=== PATIENT | female | born 1940 | race Caucasian/White ===

== ENCOUNTER 2019-04-28 15:28 | Inpatient (IN) | payer OTHER ==
[~2019-04-28] VITALS: Ht 165.1 cm; Wt 89.8 kg
[2019-04-28 15:37] VITALS: BP 183/76
--- NOTE | 2019-04-28 15:59 | NUR ---
PT COMES WITH A MED LIST FROM [facility] BUT DAUGHTER BRINGS A BAG OF MULIPLE MEDICATIONS THAT PT HAS BEEN SELF DOSING WITH. THESE WILL BE LISTED IN ANOTHER NOTE
[2019-04-28] MEDS ORDERED: ARMOUR THYROID60 M1 PO (16:04)
[2019-04-28] MEDS ORDERED: ARICEPT10 M1 PO (16:05)
[2019-04-28] MEDS ORDERED: LISINOPRIL2.5 MG PO (16:05)
[2019-04-28] MEDS ORDERED: ZETIA10 MG PO (16:05)
[2019-04-28] MEDS ORDERED: MYRBETRIQ50 MG PO (16:06)
[2019-04-28] MEDS ORDERED: KLOR-CON M2020 MEQ PO (16:06)
[2019-04-28] MEDS ORDERED: NYSTATIN1 EA10 TOP (16:06)
[2019-04-28] MEDS ORDERED: TRIAMTERENE-HC1 EAC2 PO (16:07)
[2019-04-28] MEDS ORDERED: SPIRONOLACTONE25 MG PO (16:07)
[2019-04-28] MEDS ORDERED: VIIBRYD40 MG PO (16:08)
--- NOTE | 2019-04-28 16:29 | NUR ---
MULTIPLE MEDS FOUND IN THE BAG BROUGHT BY DAUGHTER INCLUDING: TYLENOL # 3 FILLED IN 2011 VICOPROFEN FILLED IN 2001 4 BOTTLES OF TRIAMTERENE-HCTZ FILLED IN 2016, 2018,2014,2014 IMMODIUM THAT EXP IN 2013 4 BOTTLES OF LISINPRIL FILLED IN 2017, 2016, 2015, 2017 4 BOTTLES OF K+ FILLED IN 2014, ,2017 CIPRO FILLED IN 2006 HOTEL CONCIERGE THYROID FILLED IN 2016 VIIBRYD FILED IN 2017 NORCO 7.5-325 FILLED IN 2015 EZETIMIBE-SIMVASTATIN FILLED IN 2016 MOTRIN THAT EXP IN 2001 SIMVASTATIN FILLED IN 2018 KEFLEX FILLED IN 2004, 2007, 2006 2015 LEVAQUIN FILLED IN 2007 DONEPIZIL FILLED IN 2017 BENZONATATE FILLED IN 2012 CHLORZOXAZONE FILLED IN 2015 EZETIMIBE FILLED IN 2018 SENNA THAT EXP IN 2008 FLAGYL FILLED IN 2016 MYRBETIRQ FILLED IN 2018 CLARITIN THAT EXP IN 2007 PROMETHAZINE FILLED IN 2007 MECLIZINE FILLED IN 2008 ASA THAT EXP IN 1998 ADVIL THAT EXP IN 2015 NEXIUM FILLED IN 2013 A BOTTLE WITH LISINOPRIL CROSSED OUT AND ACYCLOVIR HAND WRITTEN ON LABEL A PILL BOX WITH THE FOLLOWING LABELS: "MEMORY," ARMOUR THY, LISNOPRIL, TRIAMIERENE, VIIBD, "BLADDER" AND VYTORIN. THE SIGNIFIGANCE OF THIS IS THAT PT IS REPORTED TO HAVE THESE SROUNDING HER AND HAS INFORMED FAMILY AND STAFF THAT SHE TAKES ALL OF THESE MEDICATIONS. PT COULD HAVE POTENTIALLY TAKEN MANY OR NONE OF THE MEDICATIONS
[2019-04-28 16:32] LABS: ABSOLUTE NEUTROPHILS 9.4 thou/uL (1.4-8.2); BASOPHILS 0.4 % (0.0-2.0); EOSINOPHILS 0.8 % (0.0-3.0); HEMOGLOBIN 12.2 gm/dL (12.0-15.0); MCH 30.9 pg (26.0-34.0); MCHC 32.9 g/dL (28.0-37.0); MCV 93.9 fL (80.0-100.0); MONOCYTES 6.8 % (1.0-8.0); RBC 3.94 mil/uL (4.20-5.00); RDW 13.8 % (10.5-14.5); WBC 13.6 thou/uL (4.0-11.0)
[2019-04-28 16:50] LABS: ALBUMIN 3.5 g/dL (3.4-5.0); ANION GAP 7 mmol/L (7-16); BUN 21 mg/dL (7-18); CHLORIDE 108 mmol/L (98-107); CO2 26 mmol/L (21-32); CREATININE 1.3 mg/dL (0.6-1.0); GLUCOSE 124 mg/dL (74-106); POTASSIUM 4.4 mmol/L (3.5-5.1); SGOT 11 U/L (15-37); SGPT 19 U/L (30-65); SODIUM 141 mmol/L (136-145); TOTAL BILIRUBIN 0.6 mg/dL (<0.1-1.0); TOTAL PROTEIN 7.3 g/dL (6.4-8.2); TROPONIN-I <0.06 ng/mL (<0.06)
[2019-04-28 17:00] LABS: URINE BILIRUBIN NEGATIVE (Negative); URINE BLOOD NEGATIVE (Negative); URINE CLARITY CLEAR; URINE COLOR YELLOW; URINE GLUCOSE-RANDOM* NEGATIVE (Negative); URINE KETONES NEGATIVE (Negative); URINE NITRITE-REFLEX NEGATIVE (Negative); URINE PROTEIN (DIPSTICK) NEGATIVE (Negative); URINE SPECIFIC GRAVITY 1.025 (1.005-1.035); URINE UROBILINOGEN 0.2 E.U./dl (0.2-1.0)
[2019-04-28 17:04] LABS: CALCIUM 11.9 mg/dL (8.5-10.1)
[2019-04-28 17:07] LABS: AMP/METHAMP Negative (Negative); BARBITURATES Negative (Negative); BENZODIAZEPINES Negative (Negative); COCAINE Negative (Negative); METHADONE Negative (Negative); OPIATES Negative (Negative); PCP Negative (Negative); URINE LEUKOCYTES-REFLEX 1+ (Negative)
[2019-04-28 17:55] LABS: CASTS None Seen /LPF (None Seen); CRYSTALS None Seen /LPF (None Seen); SQUAMOUS >10 Many /LPF (0-3)
[2019-04-28 17:56] LABS: BACTERIA-REFLEX 1-9 Few /HPF (None Seen); URINE RBC None Seen /HPF (0-2); URINE WBC-REFLEX 6-15 Few /HPF (0-5)
[2019-04-28 18:11] LABS: PLATELET COUNT 178 thou/uL (150-400)
[2019-04-28 18:48] VITALS: BP 177/83
[2019-04-28 19:21] VITALS: BP 188/73
[2019-04-28 21:23] LABS: CALCIUM 10.5 mg/dL (8.5-10.1); CREATININE 1.1 mg/dL (0.6-1.0); PHOSPHORUS 2.8 mg/dL (2.5-4.9)
[2019-04-28 21:28] VITALS: BP 140/65
[2019-04-29 03:55] VITALS: BP 151/75
--- NOTE | 2019-04-29 04:33 | NUR ---
ADMISSION ASSESSMENT COMPLETED. PT IS ALERT AND ORIENTED. FLAT AFFECT. PT STATES " THEY SAY I WANTED TO KILL MYSELF BUT I DONT" PT DENIES ANY SUICIDAL IDEATION. SHE ANSWERED ADMISSION QUESTIONS. SHE IS FORGETFUL AT TIMES. SEEMS SLIGHTLY IRRITABLE. DENIES PAIN.WALKS WITH SBA TO THE BATHROOM.FALL PREC IN PLACE. CALL LIGHT WITHIN REACH.LOTS OF MEDICATIONS COLLECTED FROM PATIENT AND WILL BE SENT TO PHARMACY.
[2019-04-29 05:28] LABS: POTASSIUM 4.3 mmol/L (3.5-5.1)
[2019-04-29 06:18] LABS: CALCIUM 9.8 mg/dL (8.5-10.1)
[2019-04-29 07:39] VITALS: BP 148/62
[2019-04-29] MEDS ORDERED: LOPRESSOR50 PO (15:15)
--- NOTE | 2019-04-29 16:05 | NUR ---
INITIAL ASSESSMENT: Pt evaluated for d/c planning needs. Reviewed chart and spoke with nurse, pt and [facility] staff. Pt lives in assisted living at [facility]. Pt and spouse had moved into facility back in February 2019. According to staff at facility, pt has been bullying to other and normally stays to herself. Spouse had been living with pt in [place], but moved to another room because of behaviors. [facility] would like to do on-site evaluation of pt prior to return. They do have memory care unit at [place], but pt does not qualify at this time. Will remain available to assist as needed. [facility] [phone]
[2019-04-29 16:45] VITALS: BP 202/89
[2019-04-29 16:48] VITALS: BP 183/75; BP 183/76
[2019-04-29 17:00] VITALS: BP 185/86
[2019-04-29 17:24] LABS: TSH 2.938 uIU/mL (0.358-3.740)
[2019-04-29 19:10] VITALS: BP 151/66
--- NOTE | 2019-04-29 19:44 | NUR ---
Assumed care of pt at 0700. Pt pleasant but forgetful. Pharmacy states pt has low vitamin D. Provider aware. Fluids discontinued. Psych consulted. Pts daughter came to unit. Affidavid signed for pt to be transferred to . Provider aware. Call light within reach. Fall precautions in place. Report given to shirin TRACY.
--- NOTE | 2019-04-30 02:08 | NUR ---
ASSESSED AT START OF SHIFT. A&O3 FORGETFUL SLIGHTLY IRITABLE WHEN INFORMED ABOUT BED ALARM ON. PT GETS UP FROM BED WITH OUT CALLING EDUCATION PROVIDED. IV INTACT AND SALINE LOCK. PT STATED WILL LIKE TO GET A SHOWER OFFERED TONIGHT SHE STATED WILL LIKE TOMORROW @10AM. FALL PREC IN PLACE AND CALL LIGHT IN REACH WILL CONT WITH POC.
[2019-04-30 04:19] VITALS: BP 149/69
[2019-04-30 09:04] VITALS: BP 175/82
[2019-04-30] MEDS ORDERED: VITAMIN B-12500 MCG PO (10:43)
[2019-04-30] MEDS ORDERED: B12INJ IM (10:43)
--- NOTE | 2019-04-30 13:07 | NUR ---
Assumed care of pt at 0700. Pt pleasant this am and follows commands. Forgetful at times. Pt has been cleared to go to 5S. SBA to the toilet. Denies pain. Fall precautions in place. Report given to Estela TRACY.
[2019-04-30] MEDS ORDERED: VITAMIN D21250 MC1 PO (14:22)
[2019-04-30] MEDS ORDERED: SYNTHROID100 MC1 PO (14:22)
--- NOTE | 2019-05-01 11:53 | HC ---
[facility] [place] [address] CONSULTATION Name: BRITTANY WATTERS Room #: 443-P [facility] IN M.R.#: [id number] Admission: 04/28/19 Attend Phys: Amy Oro MD Discharge: 04/30/19 Date of : 38 Report #: [id number] THIS REPORT FOR: //name// CC: Peewee MARTINEZ Physician staff DATE OF SERVICE: 04/30/2019 ENDOCRINE CONSULTATION NOTE CONSULTING PHYSICIAN: Dr. Doyle. REASON FOR CONSULTATION: Hypercalcemia, hyperparathyroidism. HISTORY OF PRESENT ILLNESS: This is a 78-year-old female patient, who presented to the ER mainly from [facility] mainly with concerns over increased agitation and behavioral changes. It appears that the patient had gotten more aggressive both verbally and physically, especially with her where she had to be from him at their assisted living facility. Also, it seems that she was heard making suicidal threats. On arrival, the patient was found to be severely hypercalcemic and was admitted for further care and monitoring. On further questioning, the patient does not recall having had a prior history of hypercalcemia, hyperparathyroidism, kidney stones, pancreatitis, a diagnosis of osteoporosis, recent fractures, depression, decreased focus or forgetfulness, myalgias or body aches. The patient enjoys a good appetite and denies having had a significant weight loss over the past few years. Also, the patient has chronic hypothyroidism and is maintained on [place] Thyroid at a dose of 60 mg daily. REVIEW OF SYSTEMS: CONSTITUTIONAL: No major issues with fatigue, tiredness, fever, chills, or significant body weight changes. HEENT: Negative for sore throat, sinus pain, or ear congestion. PULMONARY: Negative for a shortness of breath, cough, or hemoptysis. CARDIAC: Negative for chest pain and palpitations, but noted for a lower extremity swelling. GASTROINTESTINAL: Noted for intermittent issues with the abdominal discomfort, but no nausea, vomiting, or major changes in bowel movement frequency. NEUROLOGY: Negative for a lightheadedness, dizziness, seizure activity, frequent severe headaches, or tremors. [facility] [address] [place] [address] CONSULTATION Name: ERWIN WATTERSANN Room #: 443-P [facility] IN M.R.#: [id number] Admission: 04/28/19 Attend Phys: Amy Oro MD Discharge: 04/30/19 Date of : 38 Report #: [id number] PSYCHIATRY: She denies having had mental status changes, mood alterations, delusions, or hallucinations. Otherwise, the review of systems is noncontributory other than those mentioned in the HPI. PAST MEDICAL HISTORY: Noted for: 1. Hypothyroidism. 2. Hypertension. 3. Dementia. 4. Rosacea. ACTIVE MEDICATIONS: Include: 1. [place] Thyroid 60 mg daily. 2. Aricept 5 mg daily. 3. Zetia 10 mg daily. 4. Lisinopril 2.5 mg daily. 5. Myrbetriq 50 mg daily. 6. Klor-Con 20 mEq daily. 7. Spironolactone 12.5 mg daily. 8. Triamterene/hydrochlorothiazide 37.5/25 mg daily. 9. Viibryd 40 mg daily. ALLERGIES: None noted in her chart. The patient does not recall any. FAMILY HISTORY: Noncontributory. SOCIAL HISTORY: The patient lives at an assisted living facility, [facility]. She has two children. Denies the use of tobacco, alcohol, or illicit drugs. PHYSICAL EXAMINATION: GENERAL: Pleasant female patient, who is not in apparent pain or distress. VITAL SIGNS: Blood pressure is 175/82 mmHg, heart rate is 72 beats per minute, respirations 17 per minute, and temperature is 36.5 degrees. CONSTITUTIONAL: The patient is sitting upright in bed, appears relatively comfortable, not in pain or distress. HEENT: Anicteric sclerae. Intact extraocular motions. NECK: Supple, without JVD, carotid bruits, or lymphadenopathy and no thyromegaly. CHEST: Noted for moderate air entry bilaterally with scattered rales. No wheezes or crackles. HEART: Regular rate and rhythm without murmurs or gallops. ABDOMEN: Soft and lax without tenderness or organomegaly. No guarding. Active bowel sounds. [facility] [address] [place] [address] CONSULTATION Name: BRITTANY WATTERS Room #: 443-P [facility] IN M.R.#: [id number] Admission: 04/28/19 Attend Phys: Amy Oro MD Discharge: 04/30/19 Date of : 38 Report #: [id number] EXTREMITIES: Lower extremity exam is noted for a trace ankle edema bilaterally with extensive stasis dermatitis changes. NEUROLOGIC: Awake, alert, and oriented to time, place, and person. The remainder of her examination is nonfocal. PSYCH: Appropriate. Normal mood and affect, interactive, normal thought process. LABORATORY RESULTS: Sodium 140, potassium 4.3, chloride 108, CO2 18, anion gap of 14, BUN 17, creatinine 1.0, glucose 103, AST 11, total bilirubin 0.6. Calcium on arrival was 11.9, later that day was 10.5, yesterday it was 9.8 mg/dL. Creatinine was 1.3 on arrival and now it is 1.0. Phosphorus 2.8. Alkaline phosphatase 90, ALT 19, total protein 7.3, albumin 3.5. Troponin negative. White blood count 13.6, hemoglobin 12.2, hematocrit 37, platelets 178. TSH 2.938. Vitamin B12 126, creatinine 1.1. PTH was 180, vitamin D 7.7. ASSESSMENT AND PLAN: 1. Hypercalcemia. The patient presented with near severe hypercalcemia at 11.9 mg/dL. This proved to be connected to hyperparathyroidism as will be discussed below. She responded very well to sufficient IV fluid resuscitation with her calcium converting to a very normal value of 9.8 mg/dL. Given this stability at the present time, I would advocate periodic calcium checks and maintaining hydration at least orally. Periodic followup in the outpatient setting is advised as well. 2. Hyperparathyroidism. Upon the patient's presentation with hypercalcemia, she was investigated for hyperparathyroidism and she proved to indeed have this issue with her PTH at 180. However, this appears to be a mixed hyperparathyroid outlook, especially in the presence of severe vitamin D deficiency. Moreover, the patient's hypercalcemic outlook responded significantly and readily to the short-term intravenous fluid resuscitation. Moreover, the patient does not feature any indication of a fpc end-organ damage caused by hypercalcemia or hyperparathyroidism including pancreatitis, chronic kidney disease, osteoporosis, fractures, or active symptoms. Given the stable outlook, I would certainly advocate for adequate vitamin D deficiency, adequate hydration, periodic serum calcium monitoring, and then an outpatient followup and evaluation in 3 months to assess her standing. I discussed these variables and the implications of this diagnosis with the patient at length and she agrees with the orientation to conservative monitoring. Since a surgical intervention is not being pursued at the present time, imaging studies have no immediate role. 3. Vitamin D deficiency, severe, at 7.7 and certainly contributing to the secondary element of hyperparathyroidism. I propose high dose vitamin D therapy at 50,000 international units, of ergocalciferol, weekly for 12 weeks, to be followed up in 3 months to ensure the adequate replacement. 4. Hypothyroidism. The patient has a longstanding hypothyroidism that has been treated with [place] Thyroid at a dose of 60 mg daily in the outpatient setting. I counseled the patient about the formulary limitations here at the [facility] [address] [place] [address] CONSULTATION Name: BRITTANY WATTERS Room #: 443-P [facility] IN .R.#: [id number] Admission: 04/28/19 Attend Phys: Amy Oro MD Discharge: 04/30/19 Date of : 38 Report #: [id number] in most hospitals and I propose converting to levothyroxine, which she had agreed to. An equivalent dosage of levothyroxine would be 100 mcg daily and I will start with that effective tomorrow. I have reviewed the clinical care notes, laboratory data, and other pertinent clinical information for over 35 minutes. I certainly appreciate this consultation by Dr. Doyle. <ELECTRONICALLY SIGNED> By: Lamar Casper MD 05/01/19 [id number] Lamar Casper MD /nt
== END 2019-04-30 16:17 | disposition home or self-care (01) | DRG 683 ==
LOC: ER 15:28 → 4S 18:00 → EROBS 18:00 → 4S 20:35
PROVIDERS: Nurse Practitioner Family; ADMIT Hospitalist
DX: N17.9 Acute kidney failure, unspecified (principal); N39.0 Urinary tract infection, site not specified; E87.2 Acidosis; R45.851 Suicidal ideations; E83.52 Hypercalcemia; I10 Essential (primary) hypertension; E03.9 Hypothyroidism, unspecified; F03.90 Unspecified dementia, unspecified severity, without behavioral disturbance, psychotic disturbance, mood disturbance, and anxiety; F32.9 Major depressive disorder, single episode, unspecified; G47.00 Insomnia, unspecified; E86.0 Dehydration; Z90.49 Acquired absence of other specified parts of digestive tract; Z79.899 Other long term (current) drug therapy
CPT/HCPCS: 10195

== ENCOUNTER 2019-04-30 17:19 | Inpatient (IN) | payer OTHER ==
[~2019-04-30] VITALS: Ht 165.1 cm; Wt 90.3 kg
--- NOTE | ~2019-04-30 | HC ---
[facility] [place] [address] CONSULTATION Name: BRITTANY WATTERS Room #: 521A-A [facility] IN M.R.#: [id number] Admission: 04/30/19 Attend Phys: Peewee Gregg DO Discharge: 05/06/19 Date of : 38 Report #: [id number] THIS REPORT FOR: //name// CC: Peewee MARTINEZ Physician staff DATE OF SERVICE: 05/03/2019 CHIEF COMPLAINT: History of skin cancer with open ulcer to the left wrist. HISTORY OF PRESENT ILLNESS: This is a 78-year-old female patient who was admitted to the Geriatric Psych Unit after a possible suicidal threat. The patient has been admitted and is receiving inpatient psychiatric care. She was noted to have some history of skin cancer. There is a report of possible melanoma, although that cannot be verified. I did not have anything to refer to. The patient states she has had 17 lesions removed and she has been seen by Dr. Mitchell Zamorano, supervisor lead burning in the past. PAST MEDICAL HISTORY: Positive for history of hypertension, elevated cholesterol, UTI, aggression, acute kidney injury, dementia, hypercalcemia and previous cholecystectomy. SOCIAL HISTORY: Negative for tobacco use. Positive for some alcohol use. FAMILY HISTORY: Unknown. MEDICATIONS: Include donepezil, Zetia, potassium, metoprolol, levothyroxine, ergocalciferol, vitamin B12, and cyanocobalamin. ALLERGIES: ADHESIVE TAPE. REVIEW OF SYSTEMS: CONSTITUTIONAL: The patient denies fever, chills, or weight loss. NEUROLOGICAL: The patient denies focal weakness, numbness or tingling. EYES: The patient denies any visual changes, redness or drainage. ENT: The patient denies earache, nasal drainage, sore throat. CARDIOVASCULAR: The patient denies chest pain, palpitations or diaphoresis. PULMONARY: The patient denies cough or shortness of breath. GASTROINTESTINAL: The patient denies nausea, vomiting, diarrhea or abdominal pain. ORTHOPEDIC: The patient denies pain or swelling in the extremities. She is aware of the ulceration on her left wrist that she thinks is a skin cancer. PSYCHIATRY: Please note findings in the history of present illness. ENDOCRINE: The patient denies heat or cold intolerance, polydipsia, polyphagia, polyuria. [address] [address] CONSULTATION Name: BRITTANY WATTERS Room #: 521A-A [facility] IN M.R.#: [id number] Admission: 04/30/19 Attend Phys: Peewee Gregg DO Discharge: 05/06/19 Date of : 38 Report #: [id number] DERMATOLOGIC: The patient denies rashes, itching, or lumps, but does have the ulceration on her left lateral wrist. Other systems in a 14-point review of systems are negative. PHYSICAL EXAMINATION: VITAL SIGNS: At this time include temperature 98.4, pulse 74, respiratory rate 18, and blood pressure 175/71. GENERAL: This is a chronically ill-appearing female patient who appears to be in distress. HEENT: Head normocephalic. Nose and throat clear. NECK: Supple. HEART: Regular rhythm without murmur. ABDOMEN: Soft and nontender. Bowel sounds present. EXTREMITIES: Demonstrate some occasional areas of scarring on the lower extremities, possibly from previous lesions that have been resected. She has an area of ulceration to her left lateral wrist with some hypertrophic granulation tissue and a little bit of fibrin, does not appear to be infected. It is nontender. It is unable to be determined by visual inspection whether this represents a cutaneous malignancy. NEUROLOGIC: The patient is alert. She appears to be moving all 4 extremities spontaneously. LABORATORY DATA: Includes sodium 140, potassium 4.3, CO2 18, BUN 17, creatinine 1.0, calcium is 9.8. White blood cell count 13.6, and hemoglobin 12.2. CLINICAL IMPRESSION: 1. 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 2. History of suicidal ideation and aggressive behavior. RECOMMENDATIONS: At this point in time, we will recommend a border foam or Band-Aid for simple protection right now. I think this would best be treated with excision with her supervisor lead burning when she as an outpatient. I do not see an urgent need to have it excised while here in the hospital as I am not certain whether she would be cooperative for doing such at the bedside or not, but needless to say it has been present for quite some time and I think she could have ongoing followup with the supervisor lead burning with whom she has had a relationship for cancer types and in order to get appropriate margins. I have discussed this with Dr. Gregg. I appreciate being asked to see her in consultation. By: [id number] Isaiah Rubio MD /nt
--- NOTE | ~2019-04-30 | D ---
[facility] [place] [address] DISCHARGE SUMMARY Name: BRITTANY WATTERS Room #: 521A-A [facility] IN M.R.#: [id number] Admission: 04/30/19 Attend Phys: Peewee Gregg DO Discharge: 05/06/19 Date of : 38 Report #: [id number] THIS REPORT FOR: //name// CC: Peewee MARTINEZ Physician staff DATE OF SERVICE: 05/06/2019 INPATIENT PSYCHIATRIC DISCHARGE SUMMARY ATTENDING PHYSICIAN: Peewee Gregg DO. DISTRICT FIRE CHIEF AT THE TIME OF DISCHARGE: Amy Oro MD DISCHARGE DIAGNOSES: Major neurocognitive disorder, mild degree, most likely due to Alzheimer's disease. Medical diagnoses include hypertension, negative culture for UTI, hypercalcemia improved, acute renal failure due to prerenal volume depletion, also mixed hyperparathyroidism diagnosed with ____. DISCHARGE PLAN: Discharging back to assisted living at [facility]. Psychiatric medical care to be provided by receiving facility. The patient will need both PCP and Psychiatry followup. MEDICATIONS: As follows: Lisinopril 20 mg p.o. daily, Depakote 750 mg p.o. at bedtime. I did not get a blood level on her prior to discharge. Metoprolol tartrate 50 mg p.o. b.i.d., this medication somehow with p.r.n. during her stay, but the hospitalist intended for it to be scheduled and she was quite hypertensive on the day of discharge due to this factor, Donepezil 5 mg p.o. daily for dementia, Zetia 10 mg p.o. daily for hypertriglyceridemia, potassium chloride 20 mEq p.o. daily for replacement, cyanocobalamin 1000 mcg p.o. daily for supplementation, levothyroxine 100 mcg p.o. daily for supplementation and Dr. Casper changed his mind, she does not want the patient continued on vitamin D 50,000 International Units p.o. weekly, although she was getting it during his stay. DISCHARGE DIET: Heart healthy diet. ACTIVITY LEVEL: As tolerated. The patient will require increased supervision including medication management, driving, managing appointments for doctors, also will need to be participating in social events more so ____. REASON FOR ADMISSION: Making suicidal statements, brought to the ER, found to be greatly hypercalcemic at 11.9 and was admitted medically for several days, [facility] [address] [place] [address] DISCHARGE SUMMARY Name: BRITTANY WATTERS Room #: 521A-A [facility] IN .R.#: [id number] Admission: 04/30/19 Attend Phys: Peewee Gregg, Discharge: 05/06/19 Date of : 38 Report #: [id number] Casper. HOSPITAL COURSE: Upon admission to Geriatric Psychiatry Unit, I elected to initially see how her behavior panned out on medication change and I elected to add Depakote at night. She was not particularly impulsive, hostile during this admission, but I had information from long-term and the daughter that stated otherwise, so I think the hardest part was her starting to gain some appreciation that she may need more day to day help ____. PHYSICAL EXAMINATION: VITAL SIGNS: Afebrile, pulse 77, BP 170/58. Since she was given her beta memo, I expect that to come down in next few days. The patient was advised to monitor blood pressure every other day for the next week. MUSCULOSKELETAL: Slow gait. Normal station. MENTAL STATUS EXAMINATION: This is a well-developed, mildly obese female, appearing at least stated age. Attention limited. Concentration fair. Speech is normal in rate, volume and tone. Thought process is linear and goal oriented. Thought content focused on discharge, seeing her dogs. No psychomotor agitation. No psychomotor retardation. Denied SI or HI. Denied hopelessness, helplessness. Denied auditory, visual or tactile hallucinations. Insight limited. Judgment limited. Fund of knowledge average range. ____ social insurance administrator. By: [id number] Peewee Gregg, DO /nt
--- NOTE | 2019-04-30 15:30 | NUR ---
PT ARRIVED FROM . PT UP AD JORDON. PT DENIES ANY SI AT THIS TIME. PT STATED SHE MADE VILLAVICENCIO CRACKS AND WAS TAKEN SERIOUSLY AND SHE WILL NOT DO THAT AGAIN. PT WALKS WITHOUT ASSISTANCE. PT STATED SHE HAS 7 HORSES AND USED TO RIDE, PT STATED SHE HAS A AMMONIUM NITRATE CRYSTALLIZER THAT WATCHES OVER THEM. PT STATED SHE HAS NICK DZ AND THERE IS A LEASION TO LEFT WRIST AND THREE SMALL SCABS TO RT FOOT/ANKLE. PT ORIENTED TO MONTH AND HOSPITAL. PT WANTING TO KNOW ABOUT HOW TO GET AHOLD OF HER CHILDREN STATED THAT HER PHONE IS AT HER APT.
[~2019-04-30 17:19] MED LIST: ARICEPT10 M1 PO; ARMOUR THYROID60 M1 PO; B12INJ IM; KLOR-CON M2020 MEQ PO; LISINOPRIL2.5 MG PO; LOPRESSOR50 PO; MYRBETRIQ50 MG PO; NYSTATIN1 EA10 TOP; SPIRONOLACTONE25 MG PO; SYNTHROID100 MC1 PO; TRIAMTERENE-HC1 EAC2 PO; VIIBRYD40 MG PO; VITAMIN B-12500 MCG PO; VITAMIN D21250 MC1 PO; ZETIA10 MG PO
[2019-04-30 18:30] VITALS: BP 158/82
[2019-04-30 19:36] VITALS: BP 149/66
--- NOTE | 2019-04-30 20:35 | NUR ---
ASSUMED CARE ON 04/30/19 @ 19:15, IN DAY ROOM WATCHING TV AND SOCIALIZING WITH PEERS. HRRR, LUNGS CTA, ABD N X 4 Q, REPORTS HAD BM TODAY, FURTHERMORE REPORTS THAT HAS NO GALL BLADDER AND TAKES IMMODIUM IN THE A.M. AND HAS A SOFT FORMED BM. WILL CONTINUE ROUNDING Q 12 MINUTES FOR PATIENT SAFETY.
--- NOTE | 2019-05-01 03:32 | NUR ---
AMBULATES INDEPENDENTLY, UP AD JORDON. A&OX3 ORIENTED TO PERSON, TIME, PLACE. DENIES SI AND HI. DENIES HALLUCINATIONS. NO INDICATIONS OF AH OR VH. DENIED PAIN ON ASSESSMENT, HOWEVER @ 22:30 REQUESTED TYLENOL, WHICH WAS PROVIDED @ 2233 FOR 5/10 BACK PAIN. AT FOLLOW UP, WAS SLEEPING, RESPIRATIONS EVEN AND UNLABORED. BED IN LOW POSITION, BED ALARM SET, WILL CONTINUE TO ROUND Q 12 MINUTES FOR PATIENT SAFETY.
[2019-05-01 03:41] VITALS: BP 149/66
[2019-05-01 07:45] VITALS: BP 171/81
--- NOTE | 2019-05-01 11:18 | NUR ---
Sw met with pt to complete her intake assessment and treatment plan. JANINA educated pt on the role of SW and [facility]. This included D/C planning. Pt state dthat she would need to establish with a new Psychiatrist, mental health therapist, and would like to see a vapor coater for her cancerous growth on her skin. Pt stated that her friend of 32 years " took me seriously when I said- jeez I'd rather be ". Pt stated that the tension in the home is the result of her husbands parkinsons disease symptoms. Pt is willing to stay inpt psych until next week and has a safe d/c plan.
--- NOTE | 2019-05-01 16:39 | NUR ---
Up ambulating in halls without s/o distress. Alert and orientated X4. Denies SI/HI. States she made a stupid, off hand comment about wanting to that was taken seriously. Now she wants to go home. States bottom hurts about a 3-4, area reddened, cleaned and barrier ointment applied. Tylenol given. Breath sounds clear t/o, bilaterally equal. Color pink with brisk capillary refill and palpable peripheral pulses. Reg HR auscultated. Voiding independently. Active bowel sounds over soft, rounded abdomen. 1200 Requesting to call daughter. Spoke with her on phone. Daughter states she is the DPOA. Pt. and daughter both state that she had called wanting daughter to talk with physician to get her discharged. Pt. handed me phone and she stated that she wanted her Mom to stay until she was evaluated and she understood that might be until Friday. Daughter Aleida Crowley left number: and asked to be called by ACCOUNT SUPPORT REP/MD. 1600 ACCOUNT SUPPORT REP Abood called to inform of above phone discussion. No respose at this time. Will f/u. Pt. continues to spend time in day room without s/o distress.
[2019-05-01 21:02] VITALS: BP 157/58
--- NOTE | 2019-05-02 05:14 | NUR ---
ASSUMED CARE OF THIS PATIENT AT 1900 FOR CAR JOCKEY. SPENT THE EVENING SOCIALIZING WITH [employer] IN DAYROOM. PLEASANT AND COOPERATIVE WITH ASSESSSMENT PROCESS, MEDS. NO APPARENT DISTRESS. DENIES SI. WILL CONTINUE TO MONITOR
[2019-05-02 09:04] VITALS: BP 149/65
--- NOTE | 2019-05-02 10:52 | NUR ---
JANINA did a chart review on this pt and saw that she has been pleasant. She is also denying any suicidal ideations and has been agreeable with staff. JANINA will discuss discharge on 05/03 with treatment team. SW team will continue to follow pt during her stay on this unit.
[2019-05-02 12:12] VITALS: BP 149/65
--- NOTE | 2019-05-02 12:19 | NUR ---
ASSUMED CARE AT 0700 THIS MORNING. PT. UP, DRESSED AND ON THE UNIT TALKING WITH SEVERAL FEMALE PEERS. SHE IS PLEASANT AND COOPERATIVE WITH STAFF/PEERS. SHE TOOK HER MEDICATIONS WITHOUT DIFFICULTY. ABOUT 1030 SHE ASKED THIS RN FOR IMODIUM BECAUSE, "I HAD MY GALL BLADDER OUT AND I GET DIARRHEA IF I DON'T TAKE A IMODIUM EVERY DAY". THIS WAS DISCUSSED WITH Kwadwo Guevara. SHE WAS GIVEN THE PRN IMODIUM THIS MORNING. THE IMODIUM WAS LATER D/C'D.
[2019-05-02 19:48] VITALS: BP 142/65
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
--- NOTE | 2019-05-03 07:30 | NUR ---
Assumed care of patient this am. Patient sitting in [facility]. Patient calm and content. Patients affect tense. Patient appears to be irritable. Patient ambulates without assistance. Patient takes medications whole with fluids. Patient states that she has skin cancer. Patients assessment shows clear breath sounds, active bowel sounds, and s1 s2 heard with auscultation.
[2019-05-03 08:00] VITALS: BP 175/71
[2019-05-03 08:53] VITALS: BP 175/71
--- NOTE | 2019-05-03 12:01 | NUR ---
JANINA contacted Julissa with [facility] and obtained her fax number; [phone]. JANINA also provided her an update. She said the main thing she desires is for pt's med to be looked at and adjusted accordingly because she had two trashbags full of meds. JANINA faxed updates. JANINA team will continue to follow pt while she is on the unit.
--- NOTE | 2019-05-03 17:14 | NUR ---
JANINA sat in on a family meetin with pt, psych doctor, and Aleida Crowley (pt DPOA and daughter) on the phone. Aleida believes her mom is mostly okay for assisted living, but needs someone to administer meds to pt. JANINA provided update to doctor about what Julissa requested with [facility]. The doctor said before pt leaves he may enact pt's DPOA depending on the results of her cognitive tests. Aleida asked that the enacting documents be sent to . SW team will continue to follow pt during her stay on this unit.
[2019-05-03 19:22] VITALS: BP 158/65
--- NOTE | 2019-05-04 01:51 | NUR ---
Assessments completed. pt a&ox3. no concerns overnight. pt pleasant and cooperative. denies any pain or discomfort. left arm wound covered with guazed pad and paper tap from day shift. pt just wanted it reinforced with paper tape; said dressing was okay. pt sat in dinning room and watched tv until when it was time for her to sleep. pt has been resting comfortably. no s/s of distress. will cont to monitor
[2019-05-04 09:46] VITALS: BP 150/65
--- NOTE | 2019-05-04 17:21 | NUR ---
JANINA [phone] with concern because pt contacted her and told him she was in [place]. She said she was told pt was to be discharged soon. JANINA explained that pt is showing signs of dementia and she hasn't had any behaviors. Tamia said she understands. She said she will review the documents JANINA sent to [facility] yesterday. JANINA told her after treatment team she will call and let Tamia know when doct would like pt to discharge. She said ok. JANINA team will continue to follow pt during her stay on this unit.
[2019-05-04 20:14] VITALS: BP 165/72
--- NOTE | 2019-05-05 03:32 | NUR ---
Care assumed of patient at 1915: Patient seated in dayroom at start of shift. Patient interacting well with staff and peers. Watching TV, smiling. Calm, pleasant and cooperative. Alert and oriented x4. Denies SI/HI/AH/VH. No s/s of delusional or paranoia behaviors. Patient took HS medication whole without difficulty. Education provided on medication given. Ate 100% HS snack. Appropriate conversation held with nurse. No aggression or agitation observed. Foam dressing clean, dry and intact to top of left hand. Denies having any BM this shift. Patient was able to retire to bed at a reasonable hour and has been resting quietly since.
--- NOTE | 2019-05-05 07:30 | NUR ---
Assumed care of patient this am. Patient sitting on the couch in the [place]. Patient calm, content, and pleasant. Patients affect soft. Patient ambulates without assistance. Patient takes medications whole with thin liquids. Patients assessment shows clear breath sounds, active bowel sounds, and s1 s2 heard with auscultation.
[2019-05-05 08:00] VITALS: BP 149/66
[2019-05-05 09:23] VITALS: BP 149/66
--- NOTE | 2019-05-05 14:07 | NUR ---
JANINA and psych doctor contacted Tamia with [facility] and explained that pt needs a higher level of care. She agreed. She said she has to get with her DON to discuss if this is a possible move. She also asked SW to fax updates for pt. JANINA faxed updates. SW team will continue to follow pt during her stay.
[2019-05-05 20:29] VITALS: BP 134/62
--- NOTE | 2019-05-05 23:34 | NUR ---
ASSUMED CARE ON 05/05/19 @ 19:15, SEATED IN THE DAY ROOM SOCIALIZING WITH PEERS. COOPERATED WITH ASSESSMENT AND TOOK HS MEDS WHOLE WITH WATER. A&OX3-4 REPORTS BM TODAY. BED IN LOW POSITION, HOB RAISED AND KNEE RAISED FOR PT COMFORT. IN BED AT THIS WRITING EYES CLOSED, RESPIRATIONS EVEN AND UNLABORED.
[2019-05-06 03:15] VITALS: BP 134/62
--- NOTE | 2019-05-06 05:48 | NUR ---
SLEPT 7.6 HOURS
[2019-05-06 08:03] LABS: CALCIUM 10.8 mg/dL (8.5-10.1); POTASSIUM 4.1 mmol/L (3.5-5.1)
[2019-05-06 09:18] VITALS: BP 155/73
--- NOTE | 2019-05-06 09:27 | NUR ---
Lying supine in bed w/o s/o distress. Alert and orientated x4. Denies SI/HI. States back pain 5/10, decreased to 2-3/10 after tylenol. Breath sounds clear t/o, bilaterally equal. Irregular HR auscultated. BP 155/73. Color pink with brisk capillary refill and palpable peripheral pulses. +2 nonpitting edema in lower extremities. Independent with voids. Reports medium loose stool this AM. Requested loperamide after breakfast d/t GI urgency--states she feels she needs to run for bathroom d/t diarrhea. Active bowel sounds over soft, rounded abdomen. Open lesion per L hand pink with drying drainage, covered with drsg, no s/o infection. Pt. states it looks better. Coccyx area reddened, barrier cream applied. Up ambulating in unit without s/o distress.
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
[2019-05-06] MEDS ORDERED: BENAZEPRIL HCL20 MG PO (13:25)
[2019-05-06] MEDS ORDERED: HYDROCHLOROTHIA25 M2 PO (13:26)
[2019-05-06] MEDS ORDERED: DEPAKOTE ER250 MG PO (13:26)
[2019-05-06 14:25] VITALS: BP 167/72
[2019-05-06 14:32] VITALS: BP 184/72
[2019-05-06] MEDS ORDERED: LOPRESSOR50 PO (14:59)
[2019-05-06 15:19] VITALS: BP 170/58
--- NOTE | 2019-05-06 17:29 | EKG ---
[place] [address] [address] [place] [address] ELECTROCARDIOGRAM REPORT Name: BRITTANY WATTERS Room #: 52-A DIS IN M.R.#: [id number] Admission: 04/30/19 Attend Phys: Peewee Gregg DO Discharge: 05/06/19 Date of : 38 Report #: [id number] THIS REPORT FOR: //name// [facility] Test Date: 2019-05-06 Test Time: 14:15:50 Pat Name: BRITTANY WATTERS Department: Room: 52 A Gender: F Government Property Inspector: Dwain BUCHANAN : 1940 Requested By: Amy Oro Order Number: [id number] MD: Wellington Antony Measurements Intervals [place] Rate: 89 P: 185 KS: 186 QRS: -21 QRSD: 85 T: 31 QT: 376 QTc: 458 Interpretive Statements Sinus or ectopic atrial rhythm RSR' in V1 or V2, probably normal variant Left ventricular hypertrophy No previous ECG available for comparison Electronically Signed On 05-06-2019 17:28:50 BOX SPRING MAKER by Wellington Antony [email or web address] <ELECTRONICALLY SIGNED> By: Wellington Antony MD 05/06/19 1728 1415 1415 Wellington Antony MD /EPI
== END 2019-05-06 16:00 | DRG 881 ==
LOC: SBH
PROVIDERS: Hospitalist; ADMIT Psychiatry & Neurology Psychiatry
DX: F32.9 Major depressive disorder, single episode, unspecified (principal); F01.51 Vascular dementia, unspecified severity, with behavioral disturbance; N17.9 Acute kidney failure, unspecified; N39.0 Urinary tract infection, site not specified; R45.851 Suicidal ideations; F02.81 Dementia in other diseases classified elsewhere, unspecified severity, with behavioral disturbance; G30.9 Alzheimer's disease, unspecified; E53.8 Deficiency of other specified B group vitamins; Z90.49 Acquired absence of other specified parts of digestive tract
CPT/HCPCS: 10880